=== PATIENT | male | born 1995 | race Caucasian/White ===

== ENCOUNTER 2016-11-18 16:01 | Emergency (ER) | payer SELFPAY ==
[~2016-11-18] VITALS: Ht 188 cm; Wt 82.1 kg
[2016-11-18 16:04] VITALS: Ht 188 cm; Wt 82.1 kg
[2016-11-18] MEDS: KETOROLAC TROMETHAMINE 30 MG/ML VIAL IV STA ×2 (16:15→18:13)
[2016-11-18] MEDS ORDERED: SODIUM CHLORIDE 0.9% 1000ML 1,000 ML IV STA (16:15)
[2016-11-18] MEDS ORDERED: SODIUM CHLORIDE 0.9% 1000ML 500 ML IV STA (16:15)
--- NOTE | 2016-11-18 16:26 | EMERGENCY ROOM VISIT NOTE ---
History Report prepared by Meaghan: Puneet Antunez Under the Supervision of: Dr. Jimmie Barrios M.D. First contact with patient: 16:12 Chief Complaint: ILLNESS Stated Complaint: FEVER,FATIGUE,SORETHROAT,EXPOSED TO MUMPS History of Present Illness The patient is a 21 year old male who presents to the Emergency Room with complaints of a fever that began yesterday. The patient's fever was 37.8 C in triage. When the patient woke up this morning, his fever persisted. He has had some contact two weeks ago with his friends who have tested positive for the mumps virus. He presents to the ED today to rule out mumps, due to him leaving for spring tomorrow. He is also experiencing a sore throat, cough, rhinorrhea, fatigue, and a loss of appetite. The patient denies any abdominal pain, diarrhea, emesis. The patient did not have a flu shot this year. He does not have any past medical history. The patient did have a mumps vaccine. Source of History: patient Onset: yesterday Position: other (global) Symptom Intensity: 37.8 C Quality: other (fever) Timing: other (persistent) Associated Symptoms: + cough, + fatigue, + sorethroat, No abdominal pain, No diarrhea, No vomiting Note: He denies any eye irritants. He is experiencing rhinorrhea. Review of Systems See HPI for pertinent positives & negatives. A total of 10 systems reviewed and were otherwise negative. Past Medical & Surgical Medical Problems: (1) No Known Active Medical Problems Family History Patient reports no known family medical history. Social History Smoking Status: Current Some Day Smoker Alcohol Use: occasionally Drug Use: none Marital Status: single Occupation Status: student Current/Historical Medications Scheduled Alprazolam (Xanax), 0.5 MG PO PRN UD Scheduled PRN Clonazepam (Klonopin), 1 MG PO DAILY PRN for Anxiety Allergies Coded Allergies: No Known Allergies (Unverified , 11/18/16) Physical Exam Vital Signs Date Time Temp Pulse Resp B/P Pulse Ox O2 Delivery O2 Flow Rate FiO2 11/18/16 18:13 80 18 137/62 98 Room Air 11/18/16 16:04 37.8 64 20 126/83 97 Room Air Physical Exam GENERAL: Patient is in no acute distress. HEENT: No acute trauma, normocephalic atraumatic, mucous membranes moist, no nasal congestion, no scleral icterus. Throat erythema without exudate. No evidence for peritonsillar abscess. No parotid gland swelling or tenderness. NECK: No stridor, no adenopathy, no meningismus, trachea is midline. LUNGS: Clear to auscultation bilaterally, no wheeze, no rhonchi, breath sounds equal. HEART: Without murmurs gallops or rubs, regular rate and rhythm. ABDOMEN: Soft, nontender, bowel sounds positive, no hernias, no peritonitis. EXTREMITIES: No cyanosis or edema, full range of motion of all the joints without pain or difficulty, no signs for acute trauma. NEUROLOGIC: Oriented x 3, no acute motor or sensory deficits, no focal weakness. SKIN: No rash, no jaundice, no diaphoresis. Medical Decision & Procedures ER Provider Diagnostic Interpretation: X-ray results as stated below per interpretation by me and the radiologist: SINGLE VIEW CHEST CLINICAL HISTORY: Fever. FINDINGS: An AP, portable, upright chest radiograph is obtained. No prior studies are available for comparison at the time of dictation. The cardiomediastinal silhouette is unremarkable. The lungs and pleural spaces are clear. No pneumothorax is seen. The bony thorax is grossly intact. IMPRESSION: No active disease in the chest. Electronically signed by: Jimmie Baer M.D. 11/18/2016 4:39 PM Dictated Date/Time: 11/18/2016 4:38 PM Laboratory Results 11/18/16 16:40 Red Blood Count 5.21, Mean Corpuscular Volume 88.9, Mean Corpuscular Hemoglobin 31.1, Mean Corpuscular Hemoglobin Concent 35.0, Mean Platelet Volume 11.3, Neutrophils (%) (Auto) 77.9, Lymphocytes (%) (Auto) 9.8, Monocytes (%) (Auto) 11.8, Eosinophils (%) (Auto) 0.1, Basophils (%) (Auto) 0.1, Neutrophils # (Auto ) 7.12, Lymphocytes # (Auto) 0.90, Monocytes # (Auto) 1.08, Eosinophils # (Auto ) 0.01, Basophils # (Auto) 0.01 11/18/16 16:40 Test 11/18/16 16:40 11/18/16 17:00 White Blood Count 9.15 K/uL (4.8-10.8) Red Blood Count 5.21 M/uL (4.7-6.1) Hemoglobin 16.2 g/dL (14.0-18.0) Hematocrit 46.3 % (42-52) Mean Corpuscular Volume 88.9 fL (80-100) Mean Corpuscular Hemoglobin 31.1 pg (25-34) Mean Corpuscular Hemoglobin Concent 35.0 g/dl (32-36) Platelet Count 154 K/uL (130-400) Mean Platelet Volume 11.3 fL (7.4-10.4) Neutrophils (%) (Auto) 77.9 % Lymphocytes (%) (Auto) 9.8 % Monocytes (%) (Auto) 11.8 % Eosinophils (%) (Auto) 0.1 % Basophils (%) (Auto) 0.1 % Neutrophils # (Auto) 7.12 K/uL (1.4-6.5) Lymphocytes # (Auto) 0.90 K/uL (1.2-3.4) Monocytes # (Auto) 1.08 K/uL (0.11-0.59) Eosinophils # (Auto) 0.01 K/uL (0-0.5) Basophils # (Auto) 0.01 K/uL (0-0.2) RDW Standard Deviation 43.4 fL (36.4-46.3) RDW Coefficient of Variation 13.3 % (11.5-14.5) Immature Granulocyte % (Auto) 0.3 % Immature Granulocyte # (Auto) 0.03 K/uL (0.00-0.02) Urine Color YELLOW Urine Appearance CLEAR (CLEAR) Urine pH 7.0 (4.5-7.5) Urine Specific [place] 1.015 (1.000-1.030) Urine Protein NEG (NEG) Urine Glucose (UA) NEG (NEG) Urine Ketones NEG (NEG) Urine Occult Blood NEG (NEG) Urine Nitrite NEG (NEG) Urine Bilirubin NEG (NEG) Urine Urobilinogen NEG (NEG) Urine Leukocyte Esterase NEG (NEG) Anion Gap 9.0 mmol/L (3-11) Est Creatinine Clear Calc Drug Dose 153.7 ml/min Estimated GFR () 142.7 Estimated GFR (Non- 123.1 BUN/Creatinine Ratio 11.2 (10-20) Calcium Level 9.0 mg/dl (8.5-10.1) Total Bilirubin 0.4 mg/dl (0.2-1) Aspartate Amino Transf (AST/SGOT) 14 U/L (15-37) Alanine Aminotransferase (ALT/SGPT) 21 U/L (12-78) Alkaline Phosphatase 81 U/L (45-117) Total Protein 7.5 gm/dl (6.4-8.2) Albumin 4.2 gm/dl (3.4-5.0) Globulin 3.3 gm/dl (2.5-4.0) Albumin/Globulin Ratio 1.3 (0.9-2) Monoscreen NEG (NEG) Influenza Type A (RT-PCR) Neg for Influ A (NEG) Influenza Type B (RT-PCR) Neg for Influ B (NEG) Laboratory results reviewed by me. Medications Administered Medications (Trade) Dose Ordered Sig/Hazel Route Start Time Stop Time Status Last Admin Dose Admin Sodium Chloride 500 ml @ 999 mls/hr Q31M STAT IV 11/18/16 16:15 11/18/16 16:45 DC 11/18/16 16:15 999 MLS/HR Sodium Chloride (Nss 1000ml) 1,000 ml @ 200 mls/hr Q5H STAT IV 11/18/16 16:15 11/18/16 21:14 11/18/16 16:15 200 MLS/HR Ketorolac Tromethamine (Toradol Inj) 30 mg NOW STAT IV 11/18/16 16:15 11/18/16 16:19 DC 11/18/16 18:13 30 MG ED Course 1612: The patient was evaluated in room B8. A complete history and physical exam was performed. 1615: Toradol Inj 30 mg IV, Sodium Chloride 1000 ml @ 200 mls/hr IV, Sodium Chloride 500 ml @ 999 mls/hr IV 1650: I spoke with infectious disease at this time - Andreina Simpson. She is going to contact the [facility] department of health for advice on travel. 1722: We talked to infectious disease again. They recommend that the patient does not travel and isolate himself for at least 5 days. 1730: The patient's friends dropped food off for him. We informed the patient of the state department's orders. 1852: Reevaluated the patient. Discussed results and discharge instructions: He verbalized understanding and agreement. The patient is ready for discharge. Medical Decision Differential diagnosis includes but is not limited to: Mumps, viral illness, influenza, strep pharyngitis, pneumonia, UTI, and dehydration. There is no leukocytosis or concerning anemia. No significant electrolyte abnormality, kidney failure or hepatitis. Strep testing is negative. Influenza testing is negative. Coffey testing is negative. Urinalysis does not show infection. Blood cultures are pending. Chest x-ray does not show pneumonia. On exam, there was no cellulitis. The patient was not toxic in appearance. The patient has had a mumps exposure. Mumps laboratory testing was ordered and sent. He had specialized testing done as per [facility]. The specialized testing included swabs of the buccal mucosa after parotid massage. The list of tests required were obtained and sent. I did speak with the [facility] Department of Health. Patient received IV saline, he was given IV Toradol. The patient is being discharged. He is to maintain self-isolation, he is not to travel, in particular, he will not be going on spring. He will be in touch with the Department of Health about his mumps testing. He was encouraged to return to this ER if worsening. Patient's illness may be a typical viral illness, with his mumps exposure, early mumps as a cause for his presentation is also a consideration. Impression Primary Impression: Fever Additional Impressions: Pharyngitis Mumps Exposure Scribe Attestation The scribe's documentation has been prepared under my direction and personally reviewed by me in its entirety. I confirm that the note above accurately reflects all work, treatment, procedures, and medical decision making performed by me. Departure Information Dispostion Home / Self-Care Referrals [facility] Forms HOME CARE DOCUMENTATION FORM, IMPORTANT VISIT INFORMATION, WORK / SCHOOL INSTRUCTIONS Patient Instructions My [facility] Additional Instructions motrin or tylenol for aches and fever rest maintain home isolation--no contact with others do not travel keep in contact with the ER and the Department of Health on your mumps status and testing return if worsening Problem Qualifiers
--- NOTE | 2016-11-18 16:40 | DIAGNOSTIC IMAGING REPORT ---
SINGLE VIEW CHEST CLINICAL HISTORY: Fever. FINDINGS: An AP, portable, upright chest radiograph is obtained. No prior studies are available for comparison at the time of dictation. The cardiomediastinal silhouette is unremarkable. The lungs and pleural spaces are clear. No pneumothorax is seen. The bony thorax is grossly intact. IMPRESSION: No active disease in the chest. Electronically signed by: Jimmie Baer M.D. 11/18/2016 4:39 PM Dictated Date/Time: 11/18/2016 4:38 PM
[2016-11-18] MEDS ORDERED: ALPR-411 PO (16:57)
[2016-11-18] MEDS ORDERED: CLON2TAB3 PO (16:57)
[2016-11-18 17:09] LABS: BASO % 0.1 %; BASO ABS # 0.01 K/uL (0-0.2); COMPLETE YES; EOS % 0.1 %; HEMATOCRIT 46.3 % (42-52); IG% 0.3 %; LYMPH % 9.8 %; MEAN CELL VOLUME 88.9 fL (80-100); MEAN CORPUSCULAR HEMOGLOBIN 31.1 pg (25-34); MEAN PLATELET VOLUME 11.3 fL (7.4-10.4); MONO % 11.8 %; NEUT % 77.9 %; PLATELET COUNT 154 K/uL (130-400); RED BLOOD COUNT 5.21 M/uL (4.7-6.1); WHITE BLOOD COUNT 9.15 K/uL (4.8-10.8)
[2016-11-18 17:24] LABS: BUN/CREATININE RATIO 11.2 (10-20); CREATININE 0.89 mg/dl (0.60-1.40); POTASSIUM 3.9 mmol/L (3.5-5.1); URINE APPEARANCE CLEAR (CLEAR); URINE BILIRUBIN NEG (NEG); URINE COLOR YELLOW; URINE NITRITE NEG (NEG); URINE SPECIFIC GRAVITY 1.015 (1.000-1.030); UROBILINOGEN NEG (NEG)
[2016-11-18 17:27] LABS: ALB/GLOB RATIO 1.3 (0.9-2)
[2016-11-18 17:28] LABS: MANUAL MICROSCOPIC REQUIRED? NO; REVIEW REQ? NO
[2016-11-18 18:40] LABS: INFLUENZA A PCR Neg for Influ A (NEG); INFLUENZA B PCR Neg for Influ B (NEG)
[2016-11-18 19:06] VITALS: BP 137/62; PULSE 80; TEMP 37.8; O2SAT 98
--- NOTE | 2016-11-20 13:28 | Pharmacy Progress Note ---
ED Pharmacist Culture FollowUp Date of Service: Nov 20, 2016. Backup Grp A Strep Cx is growing Grp C beta-hemolytic strep. This organism can cause pharyngitis that mimics GAS pharyngitis, especially in college age students. Reviewed case with Dr Ruiz and the decision was made to treat w/ Amoxil 500mg BID x 10 days. Of note, this patient had been exposed to students w/ mumps and we had collected serology, urine and buccal samples. I contacted infection control, to confirm these samples were collected and sent as it was not visible in [employer] documentation. I was told the serology was sent however the urine and buccal samples were accidently discarded. Infection Control states they had contacted [facility] to have f/u buccal and urine specimens obtained from this patient. I attempted to contact this patient today @ [phone] to explain throat cx results and ask which pharmacy he would like Amoxil phoned to. There was no answer ) but I did leave a message asking Andreas to call us back at [phone].
--- NOTE | 2016-11-21 12:03 | Pharmacy Progress Note ---
ED Pharmacist Culture FollowUp Date of Service: Nov 21, 2016. 11/21/16: Attempted to contact the patient again w/ the number provided ([phone]) at [phone] today; no answer; left message asking patient to return my call. 11/20/16: Backup Grp A Strep Cx is growing Grp C beta-hemolytic strep. This organism can cause pharyngitis that mimics GAS pharyngitis, especially in college age students. Reviewed case with Dr Ruiz and the decision was made to treat w/ Amoxil 500mg BID x 10 days. Of note, this patient had been exposed to students w/ mumps and we had collected serology, urine and buccal samples. I contacted infection control, to confirm these samples were collected and sent as it was not visible in [employer] documentation. I was told the serology was sent however the urine and buccal samples were accidently discarded. Infection Control states they had contacted [facility] to have f/u buccal and urine specimens obtained from this patient. I attempted to contact this patient today @ [phone] to explain throat cx results and ask which pharmacy he would like Amoxil phoned to. There was no answer ) but I did leave a message asking Andreas to call us back at [phone]. Second attempt made to contact this patient @[phone], , again no answer - no message left with this attempt as I had left message earlier today
== END 2016-11-18 19:07 | disposition home or self-care (01) ==
LOC: C.EDB 16:02
DX: J02.9 Acute pharyngitis, unspecified (principal); Z20.828 Contact with and (suspected) exposure to other viral communicable diseases; R53.83 Other fatigue; F17.210 Nicotine dependence, cigarettes, uncomplicated